=== PATIENT | female | born 1955 | race Caucasian/White ===

== ENCOUNTER 2017-03-22 09:57 | Emergency (ER) | payer OTHER ==
[~2017-03-22] VITALS: Ht 172.7 cm; Wt 80.0 kg
[2017-03-22 09:59] VITALS: BP 131/84
[2017-03-22] MEDS ORDERED: FLUORESCEIN OPHTHALMIC 1 MG STRIP ONE (10:19)
== END 2017-03-22 10:49 | disposition home or self-care (01) ==
LOC: ED 10:46
DX: B02.9 Zoster without complications (principal); M06.9 Rheumatoid arthritis, unspecified
CPT/HCPCS: 99281; 99283

== ENCOUNTER 2017-03-25 08:18 | Emergency (ER) | payer OTHER ==
[~2017-03-25] VITALS: Ht 172.7 cm; Wt 81.0 kg
[2017-03-25 08:27] VITALS: BP 142/84
[2017-03-25] MEDS ORDERED: FLUORESCEIN OPHTHALMIC 1 MG STRIP ONE (09:22)
[2017-03-25] MEDS ORDERED: PROPARACAINE OPHTH 0.5%, 15ML ONE (09:23)
[2017-03-25] MEDS ORDERED: PROPARACAINE OPHTH 0.5%, 15ML EACHEYE ONE (09:30)
[2017-03-25] MEDS ORDERED: FLUORESCEIN OPHTHALMIC 1 MG STRIP EACHEYE ONE (09:30)
== END 2017-03-25 09:58 | disposition home or self-care (01) ==
LOC: ED 09:30
DX: B02.33 Zoster keratitis (principal); Z91.013 Allergy to seafood; Z88.2 Allergy status to sulfonamides; Z88.5 Allergy status to narcotic agent
CPT/HCPCS: 99283

== ENCOUNTER 2017-05-27 17:25 | Emergency (ER) | payer OTHER ==
[~2017-05-27] VITALS: Ht 172.7 cm; Wt 82.3 kg
[2017-05-27 17:26] VITALS: BP 154/93
== END 2017-05-27 18:40 | disposition home or self-care (01) ==
LOC: ED 18:34
DX: S93.401A Sprain of unspecified ligament of right ankle, initial encounter (principal); M06.9 Rheumatoid arthritis, unspecified; W10.9XXA Fall (on) (from) unspecified stairs and steps, initial encounter; Y93.89 Activity, other specified; Y92.89 Other specified places as the place of occurrence of the external cause; Y99.8 Other external cause status
CPT/HCPCS: 99284

== ENCOUNTER → 2019-03-17 | Outpatient (CLI) | payer MEDICARE ==
[~2019-03-17] MED LIST: FOLI0.4T2 PO; LEVO25TA4 PO; METH2.5T PO; RITU10VI INJ; TRAM50TA2 PO; ZOLP-413 PO
== END | disposition home or self-care (01) ==
LOC: RAD 09:59
PROVIDERS: ATTEND Internal Medicine
DX: R13.10 Dysphagia, unspecified (principal)
CPT/HCPCS: 74230